=== PATIENT | female | born 1950 | race Caucasian/White ===

== ENCOUNTER 2017-07-10 07:13 | Day surgery (SDC) | payer MEDICARE ==
[~2017-07-10 07:13] MED LIST: KETOROLAC TROMETHAMINE 0.45% 4 DROP/0.4 ML DROPERETTE OD PRN
[2017-07-10] MEDS: TETRACAINE HCL 0.5% OPH SOLN 2 ML OD PRN ×4 (08:07→08:39)
[2017-07-10] MEDS: CYCLOPENTOLATE 0.2%/PHENYLEPHRINE 1% OPH SOLN 2 ML OD PRN ×3 (08:08→08:30)
[2017-07-10] MEDS: BESIFLOXACIN HCL 0.6% OPH SUSP 5 ML BOTTLE OD PRN ×4 (08:08→08:59)
[2017-07-10] MEDS: TROPICAMIDE 1% OPH SOLN 3 ML OD PRN ×3 (08:08→08:30)
[2017-07-10] MEDS ORDERED: MIDAZOLAM 2 MG/2 ML INJ ONE (08:19)
[2017-07-10] MEDS: CHONDR SU A NA/HYALUR INTRAOC KIT (SURGICARE) ONE ×2 (08:46)
[2017-07-10] MEDS: EPINEPHRINE INJ/PF 1 MG/1 ML AMPULE ONE ×2 (08:46)
[2017-07-10] MEDS: LIDOCAINE 1% INJ-PF (10 MG/ML) 30 ML SDV ONE ×2 (08:46)
--- NOTE | 2017-07-10 21:44 | [facility] OPERATIVE REPORT E ---
[facility] Operative Report NAME: JOSHUA BOYD AGE: 67Y DATE OF SURGERY: 07/10/2017 PREOPERATIVE DIAGNOSIS: CATARACT, RIGHT EYE. POSTOPERATIVE DIAGNOSIS: CATARACT, RIGHT EYE. OPERATION: Cataract extraction with intraocular lens implant of the right eye. SURGEON: YESY GLASGOW M.D. ANESTHESIA: Topical. PROCEDURE: After obtaining appropriate consent, the patient's right eye was prepped and draped in sterile fashion as well as the surgeon in a sterile manner and cataract surgery was started. First a paracentesis blade was used to make a small side-port incision. Viscoelastic was used to inflate the anterior chamber. Next a 2.4 mm incision was made with the paracentesis blade. A continuous capsulorrhexis incision was made using a cystotome and Utrata forceps. Following this hydrodissection was carried out to make the lens fully loose and mobile and it was rotated 90 degrees. Following this, a kyarjz-nwo-utdoyaz technique was used to phacoemulsify the lens with a CDE of 9.67. The remaining cortex was removed with irrigation/aspiration. Provisc was instilled into the capsular bag to inflate the bag. A SN60WF, 21.5 diopter lens was placed. The remaining viscoelastic material was removed with irrigation/aspiration. Following this, a 10-0 nylon suture was used to close the incision and it was found to be watertight. Vigamox was instilled in the eye and a protective shield was placed over the eye. The patient returned to the postoperative recovery in stable condition. DICTATING PHYSICIAN: YESY GLASGOW M.D. 5139M 8 PHY#: [id number] ID: [id number] JOB#: [id number] ACCT: [id number] cc:YESY GLASGOW M.D. >
--- NOTE | 2017-07-10 21:45 | [facility] DISCHARGE SUMMARY E ---
[facility] Discharge Summary NAME: JOSHUA BOYD AGE: 67Y ADMITTED: 07/10/2017 DISCHARGED: 07/10/2017 FINAL DIAGNOSIS: CATARACT, RIGHT EYE. HISTORY/CLINIC COURSE: This is a 67-year-old female who underwent cataract extraction of the right eye without complication, woke up in postoperative recovery in stable condition. She underwent surgery because she was having difficulty driving secondary to glare at night and difficulty watching TV. Patient is to be on a regular diet. No bending at the waist, no heavy lifting. Patient should use the Besivance, Ilevro, and Durezol at 3 p.m. and 8 p.m., and sleep with a rigid shield. I will see her for 1 day postoperative tomorrow. DICTATING PHYSICIAN: YESY GLASGOW M.D. 5139M 0 PHY#: [id number] ID: [id number] JOB#: [id number] ACCT: [id number] cc:YESY GLASGOW M.D. >
== END 2017-07-10 09:36 | disposition home or self-care (01) ==
LOC: SC 07:13
PROVIDERS: ATTEND Internal Medicine
PROC: 08RJ3JZ Replacement of Right Lens with Synthetic Substitute, Percutaneous Approach (ICD-10-PCS; principal; 2017-07-10 09:00)
DX: H25.13 Age-related nuclear cataract, bilateral (principal); I10 Essential (primary) hypertension; G51.0 Bell's palsy; Z86.73 Personal history of transient ischemic attack (TIA), and cerebral infarction without residual deficits; Z88.1 Allergy status to other antibiotic agents; Z79.899 Other long term (current) drug therapy
CPT/HCPCS: 66984; V2632; J2250; J3490 ×2; A9270; J0171; 142

== ENCOUNTER 2017-07-31 07:39 | Day surgery (SDC) | payer MEDICARE ==
[~2017-07-31 07:39] MED LIST changes: -KETOROLAC TROMETHAMINE 0.45% 4 DROP/0.4 ML DROPERETTE OD PRN; +KETOROLAC TROMETHAMINE 0.45% 4 DROP/0.4 ML DROPERETTE OS PRN
[2017-07-31] MEDS ORDERED: CHONDR SU A NA/HYALUR INTRAOC KIT (SURGICARE) ONE (07:50)
[2017-07-31] MEDS ORDERED: LIDOCAINE 1% INJ-PF (10 MG/ML) 30 ML SDV ONE (07:50)
[2017-07-31] MEDS ORDERED: EPINEPHRINE INJ/PF 1 MG/1 ML AMPULE ONE (07:50)
[2017-07-31] MEDS: TETRACAINE HCL 0.5% OPH SOLN 2 ML OS PRN ×3 (08:36→09:16)
[2017-07-31] MEDS: CYCLOPENTOLATE 0.2%/PHENYLEPHRINE 1% OPH SOLN 2 ML OS PRN ×3 (08:36→08:57)
[2017-07-31] MEDS: TROPICAMIDE 1% OPH SOLN 3 ML OS PRN ×3 (08:36→08:57)
[2017-07-31] MEDS: BESIFLOXACIN HCL 0.6% OPH SUSP 5 ML BOTTLE OS PRN ×4 (08:37→09:42)
[2017-07-31] MEDS ORDERED: MIDAZOLAM 2 MG/2 ML INJ ONE (08:52)
--- NOTE | 2017-07-31 19:18 | [facility] OPERATIVE REPORT E ---
[facility] Operative Report NAME: JOSHUA BOYD AGE: 67Y DATE OF SURGERY: 07/31/2017 ROOM: PREOPERATIVE DIAGNOSIS: CATARACT, LEFT EYE. POSTOPERATIVE DIAGNOSIS: CATARACT, LEFT EYE. OPERATION: Cataract extraction with intraocular lens implant of the left eye. SURGEON: YESY GLASGOW M.D. ANESTHESIA: Topical. PROCEDURE: After obtaining appropriate consent, the patient's left eye was prepped and draped in sterile fashion as well as the surgeon in a sterile manner and cataract surgery was started. First a paracentesis blade was used to make a small side-port incision. Viscoelastic was used to inflate the anterior chamber. Next a 2.4 mm incision was made with the paracentesis blade. A continuous capsulorrhexis incision was made using a cystotome and Utrata forceps. Following this hydrodissection was carried out to make the lens fully loose and mobile and it was rotated 90 degrees. Following this, a lhrgdc-cxh-frhmvzb technique was used to phacoemulsify the lens with a CDE of 7.76. The remaining cortex was removed with irrigation/aspiration. Provisc was instilled into the capsular bag to inflate the bag. A SN60WF, 22.0 diopter lens was placed. The remaining viscoelastic material was removed with irrigation/aspiration. Following this, a 10-0 nylon suture was used to close the incision and it was found to be watertight. Vigamox was instilled in the eye and a protective shield was placed over the eye. The patient returned to the postoperative recovery in stable condition. DICTATING PHYSICIAN: YESY GLASGOW M.D. 5020M [id number] PHY#: [id number] ID: [id number] JOB#: [id number] ACCT: [id number] cc:YESY GLASGOW M.D. >
--- NOTE | 2017-07-31 19:24 | [facility] DISCHARGE SUMMARY E ---
[facility] Discharge Summary NAME: JOSHUA BOYD AGE: 67Y ADMITTED: 07/31/2017 DISCHARGED: 07/31/2017 HOSPITAL COURSE: This is a 67-year-old female who underwent cataract extraction of the left eye. DIAGNOSIS: CATARACT, LEFT EYE. She underwent surgery because she was having trouble reading medicine bottles and road signs. DISCHARGE INSTRUCTIONS: She should be on a regular diet. No bending at her waist, no heavy lifting. She should use Besivance, Ilevro, and Durezol at 3 p.m. and 8 p.m. and sleep with a rigid shield. I will see her for her 1 day postoperative tomorrow. DICTATING PHYSICIAN: YESY GLASGOW M.D. 5020M [id number] PHY#: [id number] ID: [id number] JOB#: [id number] ACCT: [id number] cc:YESY GLASGOW M.D. >
== END 2017-07-31 10:15 | disposition home or self-care (01) ==
LOC: SC 07:39
PROVIDERS: ATTEND Internal Medicine
PROC: 08RK3JZ Replacement of Left Lens with Synthetic Substitute, Percutaneous Approach (ICD-10-PCS; principal; 2017-07-31 09:30)
DX: H25.812 Combined forms of age-related cataract, left eye (principal); Z96.1 Presence of intraocular lens; I10 Essential (primary) hypertension; Z86.73 Personal history of transient ischemic attack (TIA), and cerebral infarction without residual deficits; Z79.899 Other long term (current) drug therapy
CPT/HCPCS: 66984; V2632; J2250; J3490 ×2; A9270; J0171; 142